=== PATIENT | male | born 1955 | race Caucasian/White ===

== ENCOUNTER → 2017-11-24 | Outpatient (CLI) | payer BC, OTHER ==
[2017-11-24 09:56] LABS: BUN 16 mg/dl (7-24); CHLORIDE 107 mmol/L (98-107); CHOLESTEROL 178 mg/dL (<200); CREATININE 1.14 mg/dL (0.70-1.30); HDL CHOLESTEROL 34 mg/dl (40-60); LDL CHOLESTEROL 109 mg/dL (9-159); SGOT/AST 20 IU/L (3-35); SGPT/ALT 32 U/L (12-78); SODIUM 140 mmol/L (136-145); TRIGLYCERIDES 176 mg/dl (<150); VLDL CHOLESTEROL 35 mg/dL (6-40)
== END | disposition home or self-care (01) ==
LOC: LAB 09:06
PROVIDERS: Internal Medicine Cardiovascular Disease
DX: I25.10 Atherosclerotic heart disease of native coronary artery without angina pectoris (principal)

== ENCOUNTER → 2017-12-07 | Outpatient (CLI) | payer BC, OTHER ==
[~2017-12-07] MED LIST: ASPIR 8181 MG PO; BUPROPION75 MG PO; COREG3.125 MG PO; K-TAB10 MEQ PO; LISINOPRIL2.5 MG PO; PLAVIX75 M1 PO; PRAVACHOL40 MG PO
--- NOTE | ~2017-12-07 | ST ---
[place], [place] EXERCISE STRESS TEST REPORT NAME: [facility] #: [id number] UNIT #: [id number] ROOM: DOCTOR: GARY ROWELL [facility],FABIANO BIRTHDATE: [birth year] DOS: 12/07/2017 STRESS TEST REPORT The patient underwent stress test on stage 4 Erik protocol up to 14 METs and up to 100% predicted heart rate 171 per minute. No ischemic changes noted asymptomatic except lungs excellent and the stress is a normal response. The patient should go back to work without any restrictions or resolution. FABIANO VEGA MD CM:STRESS:EXERCISE STRESS TEST REPORT [id number] FABIANO VEGA MD [facility]
== END | disposition home or self-care (01) ==
LOC: CARD 02:19
DX: I21.11 ST elevation (STEMI) myocardial infarction involving right coronary artery (principal)

== ENCOUNTER → 2018-04-09 | Outpatient (CLI) | payer BC, OTHER ==
[2018-04-09 09:12] LABS: BUN 13 mg/dl (7-24); CHLORIDE 108 mmol/L (98-107); CREATININE 0.98 mg/dL (0.70-1.30); SODIUM 143 mmol/L (136-145)
== END | disposition home or self-care (01) ==
LOC: LAB 08:04
PROVIDERS: Internal Medicine Cardiovascular Disease
DX: I25.10 Atherosclerotic heart disease of native coronary artery without angina pectoris (principal)

== ENCOUNTER → 2020-07-17 | Outpatient (CLI) | payer BC, OTHER | END | disposition home or self-care (01) | LOC: CARD 10:00 | PROVIDERS: ATTEND Internal Medicine Cardiovascular Disease | DX: I48.91 Unspecified atrial fibrillation (principal) ==

== ENCOUNTER → 2020-10-05 | Outpatient (CLI) | payer BC | END | disposition home or self-care (01) | LOC: CARD 08:56 | PROVIDERS: ATTEND Internal Medicine Cardiovascular Disease | DX: I97.89 Other postprocedural complications and disorders of the circulatory system, not elsewhere classified (principal); Z95.5 Presence of coronary angioplasty implant and graft; Z95.1 Presence of aortocoronary bypass graft ==

== ENCOUNTER → 2021-02-26 | Outpatient (CLI) | payer BC | END | disposition home or self-care (01) | LOC: CARD 02-19 10:00 | PROVIDERS: ATTEND Internal Medicine Cardiovascular Disease | DX: I48.0 Paroxysmal atrial fibrillation (principal) ==